=== PATIENT | female | born 1975 | race Caucasian/White ===

== ENCOUNTER → 2021-07-07 | Day surgery (SDC) | payer OTHER ==
[~2021-07-07] VITALS: Ht 154.9 cm; Wt 90.7 kg
[~2021-07-07] MED LIST: IBUPROFEN800 M1 PO; MELATONIN5 M2 PO
[2021-07-07 07:14] LABS: HCG (URINE) SCREEN NEGATIVE (NEGATIVE)
== END | disposition home or self-care (01) ==
LOC: FAS 06-30 10:00
PROVIDERS: Obstetrics & Gynecology
DX: N93.9 Abnormal uterine and vaginal bleeding, unspecified (principal); N84.0 Polyp of corpus uteri; F17.210 Nicotine dependence, cigarettes, uncomplicated; E66.9 Obesity, unspecified; Z68.38 Body mass index [BMI] 38.0-38.9, adult; Z98.51 Tubal ligation status; Z72.89 Other problems related to lifestyle
CPT/HCPCS: 84703; 93005; J1100; J1644; J2250; J2405; J2704; J3010; J7120